=== PATIENT | male | born 1980 | race Caucasian/White ===

== ENCOUNTER 2019-09-14 11:22 | Inpatient (IN) | payer OTHER ==
--- NOTE | 2019-09-14 11:45 | BHS.RME ---
Substance Use & Tx History - Substance Use History Alcohol Substance amount: 2 pints vodka + beers Frequency of use: Daily Substance route: Oral Date of Last Use: 09/13/19 Heroin Substance amount: 5 bags Frequency of use: Daily Substance route: Injection (ex: intravenous or skin popping) Date of Last Use: 09/13/19 COWS - Scale Resting Pulse: 0= [place] 80 or Below Sweatin= Chills/Flushing Restless Observation: 1= Difficult to Sit Still Pupil Size: 1= Pupils >than Normal Bone or Joint Aches: 2= Severe Diffuse Aches Runny Nose/ Eye Tearin= Runny Nose/Eyes GI Upset > 30mins: 1= Stomach Cramp Tremor Observation: 1= Tremor [place], Not Seen Yawning Observation: 1= 1-2x During Session Anxiety or Irritability: 1=Feels Anxious/Irritable Goose Flesh Skin: 0=Smooth Skin COWS Score: 11 CIWA Nausea/Vomitin Muscle Tremors: 3 Anxiety: 3 Agitation: 3 Paroxysmal Sweats: 3 Orientation: 0-Oriented Tacttile Disturbances: 0-None Auditory Disturbances: 0-None Visual Disturbances: 0-None Headache: 0-None Present CIWA-Ar Total Score: 14
--- NOTE | 2019-09-14 12:44 | HP ---
COWS - Scale Resting Pulse: 0= [place] 80 or Below Sweatin= Chills/Flushing Restless Observation: 1= Difficult to Sit Still Pupil Size: 1= Pupils >than Normal Bone or Joint Aches: 2= Severe Diffuse Aches Runny Nose/ Eye Tearin= Runny Nose/Eyes GI Upset > 30mins: 1= Stomach Cramp Tremor Observation: 1= Tremor [place], Not Seen Yawning Observation: 1= 1-2x During Session Anxiety or Irritability: 1=Feels Anxious/Irritable Goose Flesh Skin: 0=Smooth Skin COWS Score: 11 CIWA Score Nausea/Vomitin Muscle Tremors: 3 Anxiety: 3 Agitation: 3 Paroxysmal Sweats: 3 Orientation: 0-Oriented Tacttile Disturbances: 0-None Auditory Disturbances: 0-None Visual Disturbances: 0-None Headache: 0-None Present CIWA-Ar Total Score: 14 - Admission Criteria OASAS Guidelines: Admission for Medically Managed Detox: Requires at least one of the followin. CIWA greater than 12 2. Seizures within the past 24 hours 3. Delirium tremens within the past 24 hours 4. Hallucinations within the past 24 hours 5. Acute intervention needed for co occurring medical disorder 6. Acute intervention needed for co occurring psychiatric disorder 7. Severe withdrawal that cannot be handled at a lower level of care (continued vomiting, continued diarrhea, abnormal vital signs) requiring intravenous medication and/or fluids 8. Admitting History and Physical - Admission Chief Complaint: " I overdosed yesterday. I need help." History of Present Illness: 39 year old male with history of opioid dependence s/p overdose yesterday and seen and [facility]. Also has history of alcohol dependence with withdrawal. Alcohol: 2 pints vodka + 12 beers daily, started drinking at age 12 and last drank on 09/13/19. Admits to blackouts, last one 1 month ago, and endorses the need for an eye night nurse daily. Heroin: 1-2 bags usually but now up to 5 bags daily, started at age 25, last used 09/13/19 Cocaine: just started 1.5 weeks daily $40 daily, started 15 week ago, last used used 09/13/19 Nicotine: 1/2 pack daily, started smoking at the age of 10 PMH: Headache, Migrainous Psurg: None Psych: Bipolar, PTSD ( effexor, zyprexa las taken 2 days ago) He is homeless living on the streets. CIWA 14 COWS 11 UrineTox: BUP, MOP, JONATAN, FEN Patient meets criteria for detox as he has poor recovery environment History Source: Patient Limitations to Obtaining History: No Limitations - Past Surgical History Past Surgical History: Yes: None - Smoking History Smoking history: Current every day smoker Have you smoked in the past 12 months: Yes Aproximately how many cigarettes per day: 6 - Alcohol/Substance Use Hx Alcohol Use: Yes History of Substance Use: reports: Cocaine, Heroin, Marijuana Date of Last Use: 09/13/19 - Social History Usual Living Arrangement: Yes: Alone Do you think of yourself as: Straight/Heterosexual ADL: Independent 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, 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 History of Recent Travel: No Admission [facility] Allergies/Adverse Reactions: Allergies Allergy/AdvReac Type Severity Reaction Status Date / Time No Known Allergies Allergy Verified 09/14/19 12:04 Exam Limitations: No Limitations - Ebola screening Have you traveled outside of the country in the last 21 days: No Have you had contact with anyone from an Ebola affected area: No Have you been sick,other than usual withdrawal symptoms: No Do you have a fever: No - Review of Systems Constitutional: Chills, Diaphoresis EENT: reports: No Symptoms Reported Respiratory: reports: No Symptoms reported Cardiac: reports: No Symptoms Reported GI: reports: No Symptoms Reported : reports: No Symptoms Reported Musculoskeletal: reports: No Symptoms Reported Integumentary: reports: No Symptoms Reported Neuro: reports: No Symptoms reported Endocrine: reports: No Symptoms Reported Hematology: reports: No Symptoms Reported Psychiatric: reports: Judgement Intact, Mood/Affect Appropiate, Orientated x3 Other Systems: Reviewed and Negative Patient History - Patient Medical History Hx Asthma: No Hx Chronic Obstructive Pulmonary Disease (COPD): No Hx Cardiac Disorders: No Hx Hypertension: No Hx Seizures: No Hx Diabetes: No Hx Gastrointestinal Disorders: No Hx Genitourinary Disorders: No Hx Sexually Transmitted Disorders: No Hx Renal Disease (ESRD): No Hx Depression: No Hx Suicide Attempt: No Hx Schizophrenia: No - Patient Surgical History Past Surgical History: No Hx Neurologic Surgery: No Hx Cataract Extraction: No Hx Cardiac Surgery: No Hx Lung Surgery: No Hx Breast Surgery: No Hx Breast Biopsy: No Hx Abdominal Surgery: No Hx Appendectomy: No Hx Cholecystectomy: No Hx Genitourinary Surgery: No Hx Section: No Hx Orthopedic Surgery: No Anesthesia Reaction: No - PPD History Documented Results: Negative w/o proof Implanted On Prior R Admission?: Yes Results: negative PPD to be Administered?: Yes - Smoking Cessation Smoking history: Current every day smoker Aproximately how many cigarettes per day: 6 Hx Chewing Tobacco Use: No Initiated information on smoking cessation: Yes 'Breaking Loose' booklet given: 09/14/19 - Substances abused Alcohol Substance route: Oral Frequency: Daily Amount used: 2 PINTS ALCOHOL, 12 CANS OF BEER Age of first use: 12 Date of last use: 09/13/19 Heroin Substance route: Injection Frequency: Daily Amount used: 1-2 BAGS Age of first use: 25 Date of last use: 09/13/19 Cocaine Substance route: Injection Frequency: Daily Amount used: $40 Age of first use: 19 Date of last use: 09/13/19 Admission Physical Exam BHS - Vital Signs Vital Signs: Vital Signs - 24 hr 09/14/19 12:25 Temperature 98.1 F Pulse Rate 85 Respiratory 20 Rate Blood Pressure 109/75 - Physical General Appearance: Yes: Tremorous, Irritable, Sweating, Anxious HEENTM: Yes: EOMI, Hearing grossly Normal, Normal ENT Inspection, Normocephalic, Normal Voice, MOR, Pharynx Normal, Tm's normal Respiratory: Yes: Chest Non-Tender, Lungs Clear, Normal Breath Sounds, No Respiratory Distress, No Accessory Muscle Use Neck: Yes: No masses,lesions,Nodules, Supple, Trachea in good position Breast: Yes: Within Normal Limits Cardiology: Yes: Regular Rhythm, Regular Rate, S1, S2 Abdominal: Yes: Normal Bowel Sounds, Non Tender, Soft, Protuberent Genitourinary: Yes: Within Normal Limits Back: Yes: Normal Inspection Musculoskeletal: Yes: full range of Motion, Gait Steady, Pelvis Stable Extremities: Yes: Normal Capillary Refill, Normal Inspection, Normal Range of Motion, Non-Tender Neurological: Yes: ecd II-XII NML intact, Fully Oriented, Alert, Motor Strength 5/5, Normal Mood/Affect, Normal Response Integumentary: Yes: Normal Color, Warm Lymphatic: Yes: Within Normal Limits - Diagnostic (1) Opioid dependence with withdrawal Current Visit: Yes Status: Acute (2) Alcohol dependence with withdrawal Current Visit: Yes Status: Acute (3) Nicotine dependence Current Visit: Yes Status: Acute (4) Generalized headaches Current Visit: Yes Status: Acute (5) Bipolar 1 disorder Current Visit: Yes Status: Acute (6) PTSD (post-traumatic stress disorder) Current Visit: Yes Status: Acute (7) Homeless Current Visit: Yes Status: Acute Cleared for Admission S - Detox or Rehab [facility] Level of Care: Medically Managed Detox Regimen/Protocol: Methadone/Librium Claeared for Rehab Admission: No Screened but not Admitted - Documentation of Visit Screened but not Admitted: No Urine Drug Screen - Test Device Lot number: [id number] Expiration date: 10/25/20 - Control Is test valid?: Yes - Results Drug screen NEGATIVE: No Urine drug screen results: JONATAN-Cocaine, FEN-Fentanyl, MOP-Opiates, BUP-Suboxone Inpatient Rehab Admission - Rehab Decision to Admit Inpatient rehab admission?: No
[2019-09-14] MEDS ORDERED: cloNIDine HCL 0.1 MG TABLET PO PRN (12:49)
[2019-09-14] MEDS ORDERED: MAG HYDROX/AL HYDROX/SIMETH 30 ML UNIT-DOSE CUP PO PRN (12:49)
[2019-09-14] MEDS ORDERED: chlordiazePOXIDE HCL 25 MG CAPSULE PO PRN (12:49)
[2019-09-14] MEDS ORDERED: ACETAMINOPHEN 325 MG TABLET (FP) PO PRN ×2 (12:49)
[2019-09-14] MEDS ORDERED: BISMUTH SUBSALICYLATE 524 MG/30 ML UD PO PRN (12:49)
[2019-09-14] MEDS ORDERED: MAGNESIUM HYDROX 2400MG/30ML ORAL SUSPENSION 30 ML CUP PO PRN (12:49)
[2019-09-14] MEDS ORDERED: METHOCARBAMOL 500 MG TABLET PO PRN (12:49)
[2019-09-14] MEDS ORDERED: NICOTINE POLACRILEX 2 MG GUM BUC PRN (12:49)
[2019-09-14] MEDS ORDERED: MAGNESIUM CITRATE 300 ML BOTTLE PO PRN (12:49)
[2019-09-14] MEDS ORDERED: MENTHOL/PHENOL 1 EACH UD MM PRN (12:49)
[2019-09-14] MEDS ORDERED: IBUPROFEN 400 MG TABLET (FP) PO PRN (12:49)
[2019-09-14 13:02] VITALS: BMI 32.6
--- NOTE | 2019-09-14 13:23 | EKG ---
Test Reason : Blood Pressure : / mmHG Vent. Rate : 059 BPM Atrial Rate : 059 BPM P-R Int : 164 ms QRS Dur : 090 ms QT Int : 420 ms P-R-T Axes : 059 018 041 degrees QTc Int : 415 ms SINUS BRADYCARDIA OTHERWISE NORMAL ECG NO PREVIOUS ECGS AVAILABLE Confirmed by Karyna Menendez ([id number]) on 09/14/2019 1:23:20 PM Referred By: Confirmed By:Karyna Menendez
[2019-09-14] MEDS ORDERED: METHADONE HCL 10 MG TABLET (FOR DETOX USE ONLY) PO ONE (13:30)
[2019-09-14] MEDS ORDERED: ONDANSETRON *ODT* 4 MG TABLET SL ONE (13:30)
[2019-09-14] MEDS: hydrOXYzine PAMOATE 25 MG CAPSULE (FP) PO SCH ×3 (14:14→22:24)
[2019-09-14] MEDS: chlordiazePOXIDE HCL 25 MG CAPSULE PO SCH ×3 (14:14→22:21)
[2019-09-14] MEDS: NICOTINE 7 MG/24 HOURS TOPICAL PATCH TD SCH (14:14)
[2019-09-14] MEDS: PRENATAL VITAMINS W/ FOLIC ACID TABLET (FP) PO SCH (14:15)
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
[2019-09-14 17:42] LABS: ALBUMIN 3.7 g/dl (3.4-5.0); BILIRUBIN,TOTAL 0.9 mg/dL (0.2-1); BLOOD UREA NITROGEN 11.8 mg/dL (7-18); TOT PROT 6.9 g/dl (6.4-8.2)
[2019-09-14 17:47] LABS: HEMATOCRIT 37.7 % (35.4-49); HEMOGLOBIN 12.6 GM/dL (11.7-16.9); MCH 31.1 pg (25.7-33.7); MCHC 33.6 g/dl (32.0-35.9); MEAN CELL VOLUME 92.6 fl (80-96); MEAN PLT VOLUME 7.7 fl (7.5-11.1); PLATELET COUNT 277 K/MM3 (134-434); RBC 4.06 M/mm3 (4.00-5.60); RDW 14.1 % (11.9-15.9); WHITE BLOOD COUNT 4.2 K/mm3 (4.0-10.0)
[2019-09-14] MEDS ORDERED: MELATONIN 5 MG TABLETS PO SCH (22:00)
[2019-09-14] MEDS: BACITRACIN 0.9 GM PACKET TP SCH (22:20)
[2019-09-14] MEDS: THIAMINE HCL 100 MG TABLET (FP) PO SCH (22:21)
[2019-09-14] MEDS: OLANZapine 10 MG TABLET PO SCH (22:21)
[2019-09-14] MEDS: GABAPENTIN 300 MG CAPSULE PO SCH (22:21)
[2019-09-15] MEDS: chlordiazePOXIDE HCL 25 MG CAPSULE PO SCH ×4 (05:31→23:54)
[2019-09-15] MEDS: GABAPENTIN 300 MG CAPSULE PO SCH ×3 (05:31→23:52)
[2019-09-15] MEDS: hydrOXYzine PAMOATE 25 MG CAPSULE (FP) PO SCH (05:31)
[2019-09-15] MEDS ORDERED: METHADONE HCL 10 MG TABLET (FOR DETOX USE ONLY) ONE (08:50)
[2019-09-15] MEDS ORDERED: METHADONE HCL 5 MG TABLET (FOR DETOX USE ONLY) ONE (08:50)
[2019-09-15] MEDS ORDERED: METHADONE (DETOX) 20 MG, METHADONE (DETOX) 5 MG PO ONE (10:00)
[2019-09-15] MEDS: BACITRACIN 0.9 GM PACKET TP SCH ×2 (10:15→23:52)
[2019-09-15] MEDS: VENLAFAXINE HCL 150 MG E.R. CAPSULE PO SCH (10:15)
[2019-09-15] MEDS: NICOTINE 7 MG/24 HOURS TOPICAL PATCH TD SCH (10:16)
[2019-09-15] MEDS: PRENATAL VITAMINS W/ FOLIC ACID TABLET (FP) PO SCH (10:16)
--- NOTE | 2019-09-15 12:07 | PN ---
S CIWA - CIWA Score Nausea/Vomitin Muscle Tremors: 2 Anxiety: 3 Agitation: 3 Paroxysmal Sweats: No Perspiration Orientation: 0-Oriented Tacttile Disturbances: 1-Very Mild Itch/Numbness Auditory Disturbances: 0-None Visual Disturbances: 0-None Headache: 1-Very Mild CIWA-Ar Total Score: 12 BHS COWS - Scale Resting Pulse: 0= [place] 80 or Below Sweatin= No chills or Flushing Restless Observation: 1= Difficult to Sit Still Pupil Size: 1= Pupils >than Normal Bone or Joint Aches: 2= Severe Diffuse Aches Runny Nose/ Eye Tearin= Nasal Congestion GI Upset > 30mins: 2= Nausea/Diarrhea Tremor Observation of Outstretched Hands: 2= Slight Tremor Visible Yawning Observation: 1= 1-2x During Session Anxiety or Irritability: 2=Irritable/Anxious Goose Flesh Skin: 0=Smooth Skin COWS Score: 12 S Progress Note (SOAP) Subjective: alert,irritable,anxious,interrupted,tremor,pain in the body and back,nausea Objective: 09/15/19 12:07 Vital Signs Temperature 97.7 F 09/15/19 09:01 Pulse Rate 71 09/15/19 09:01 Respiratory Rate 18 09/15/19 09:01 Blood Pressure 115/71 09/15/19 09:01 O2 Sat by Pulse Oximetry (%) 95 09/15/19 09:01 09/15/19 12:08 Laboratory Last Values WBC 4.2 K/mm3 (4.0-10.0) 09/14/19 12:10 RBC 4.06 M/mm3 (4.00-5.60) 09/14/19 12:10 Hgb 12.6 GM/dL (11.7-16.9) 09/14/19 12:10 Hct 37.7 % (35.4-49) 09/14/19 12:10 MCV 92.6 fl (80-96) 09/14/19 12:10 MCH 31.1 pg (25.7-33.7) 09/14/19 12:10 MCHC 33.6 g/dl (32.0-35.9) 09/14/19 12:10 RDW 14.1 % (11.9-15.9) 09/14/19 12:10 Plt Count 277 K/MM3 (134-434) 09/14/19 12:10 MPV 7.7 fl (7.5-11.1) 09/14/19 12:10 Sodium 136 mmol/L (136-145) 09/14/19 12:10 Potassium 4.0 mmol/L (3.5-5.1) 09/14/19 12:10 Chloride 102 mmol/L (98-107) 09/14/19 12:10 Carbon Dioxide 27 mmol/L (21-32) 09/14/19 12:10 Anion Gap 8 MMOL/L (8-16) 09/14/19 12:10 BUN 11.8 mg/dL (7-18) 09/14/19 12:10 Creatinine 1.0 mg/dL (0.55-1.3) 09/14/19 12:10 Est GFR (CKD-EPI)AfAm 107.87 09/14/19 12:10 Est GFR (CKD-EPI)NonAf 93.07 09/14/19 12:10 Random Glucose 108 mg/dL (74-106) H 09/14/19 12:10 Calcium 9.0 mg/dL (8.5-10.1) 09/14/19 12:10 Total Bilirubin 0.9 mg/dL (0.2-1) 09/14/19 12:10 AST 87 U/L (15-37) H 09/14/19 12:10 ALT 153 U/L (13-61) H 09/14/19 12:10 Alkaline Phosphatase 105 U/L (45-117) 09/14/19 12:10 Total Protein 6.9 g/dl (6.4-8.2) 09/14/19 12:10 Albumin 3.7 g/dl (3.4-5.0) 09/14/19 12:10 Syphilis Serology Non-reactive (NONREACTIVE) 09/14/19 12:10 Assessment: 09/15/19 12:08 withdrawal symptom Plan: continue detox methadone and librium regimen,fasting glucose in am
[2019-09-15] MEDS: OLANZapine 10 MG TABLET PO SCH (23:52)
[2019-09-15] MEDS: THIAMINE HCL 100 MG TABLET (FP) PO SCH (23:52)
[2019-09-16] MEDS: GABAPENTIN 300 MG CAPSULE PO SCH ×3 (06:16→23:15)
[2019-09-16] MEDS: chlordiazePOXIDE HCL 25 MG CAPSULE PO SCH ×4 (06:16→23:15)
[2019-09-16] MEDS ORDERED: METHADONE HCL 10 MG TABLET (FOR DETOX USE ONLY) PO ONE (10:00)
[2019-09-16 10:07] LABS: GLUCOSE,FASTING 102 mg/dL (74-106); SGOT/AST 63 U/L (15-37); SGPT/ALT 141 U/L (13-61)
[2019-09-16] MEDS: VENLAFAXINE HCL 150 MG E.R. CAPSULE PO SCH (11:00)
[2019-09-16] MEDS: PRENATAL VITAMINS W/ FOLIC ACID TABLET (FP) PO SCH (11:00)
[2019-09-16] MEDS: NICOTINE 7 MG/24 HOURS TOPICAL PATCH TD SCH (11:00)
[2019-09-16] MEDS: BACITRACIN 0.9 GM PACKET TP SCH ×2 (11:04→23:15)
--- NOTE | 2019-09-16 12:22 | PN ---
[facility] CIWA - CIWA Score Nausea/Vomitin-Mild Nausea/No Vomiting Muscle Tremors: 2 Anxiety: 2 Agitation: 2 Paroxysmal Sweats: No Perspiration Orientation: 0-Oriented Tacttile Disturbances: 1-Very Mild Itch/Numbness Auditory Disturbances: 0-None Visual Disturbances: 0-None Headache: 1-Very Mild CIWA-Ar Total Score: 9 BHS COWS - Scale Resting Pulse: 0= [place] 80 or Below Sweatin= No chills or Flushing Restless Observation: 1= Difficult to Sit Still Pupil Size: 0= Normal to Room Light Bone or Joint Aches: 1= Mild Discomfort Runny Nose/ Eye Tearin= Nasal Congestion GI Upset > 30mins: 1= Stomach Cramp Tremor Observation of Outstretched Hands: 2= Slight Tremor Visible Yawning Observation: 1= 1-2x During Session Anxiety or Irritability: 2=Irritable/Anxious Goose Flesh Skin: 0=Smooth Skin COWS Score: 9 [facility] Progress Note (SOAP) Subjective: alert,irritable,anxious,interrupted sleep,pain in the body and back Objective: 09/16/19 12:25 Vital Signs Temperature 97.1 F L 09/16/19 05:58 Pulse Rate 70 09/16/19 05:58 Respiratory Rate 16 09/16/19 05:58 Blood Pressure 115/83 09/16/19 05:58 O2 Sat by Pulse Oximetry (%) 95 09/16/19 05:58 Laboratory Results - last 24 hr 09/14/19 09/16/19 13:40 07:45 Fasting Glucose 102 AST 63 H ALT 141 H COVID-19 (KWAN) Not detected Assessment: 09/16/19 12:26 withdrawal symptom Plan: continue detox methadone and librium regimen
[2019-09-16] MEDS: OLANZapine 10 MG TABLET PO SCH (22:34)
[2019-09-16] MEDS: THIAMINE HCL 100 MG TABLET (FP) PO SCH (23:15)
[2019-09-17] MEDS ORDERED: chlordiazePOXIDE HCL 10 MG CAPSULE PO PRN
[2019-09-17] MEDS: chlordiazePOXIDE HCL 10 MG CAPSULE PO SCH ×4 (06:31→23:11)
[2019-09-17] MEDS: GABAPENTIN 300 MG CAPSULE PO SCH ×3 (06:31→21:50)
[2019-09-17] MEDS ORDERED: METHADONE HCL 5 MG TABLET (FOR DETOX USE ONLY) ONE (09:48)
[2019-09-17] MEDS ORDERED: METHADONE HCL 10 MG TABLET (FOR DETOX USE ONLY) ONE (09:49)
[2019-09-17] MEDS ORDERED: METHADONE (DETOX) 10 MG, METHADONE (DETOX) 5 MG PO ONE (10:00)
--- NOTE | 2019-09-17 10:04 | PN ---
S CIWA - CIWA Score Nausea/Vomitin-Mild Nausea/No Vomiting Muscle Tremors: 2 Anxiety: 2 Agitation: 1-Slight > Activity Paroxysmal Sweats: No Perspiration Orientation: 0-Oriented Tacttile Disturbances: 1-Very Mild Itch/Numbness Auditory Disturbances: 0-None Visual Disturbances: 0-None Headache: 1-Very Mild CIWA-Ar Total Score: 8 BHS COWS - Scale Resting Pulse: 0= [place] 80 or Below Sweatin= No chills or Flushing Restless Observation: 0= Sits Still Pupil Size: 0= Normal to Room Light Bone or Joint Aches: 1= Mild Discomfort Runny Nose/ Eye Tearin= Nasal Congestion GI Upset > 30mins: 1= Stomach Cramp Tremor Observation of Outstretched Hands: 2= Slight Tremor Visible Yawning Observation: 1= 1-2x During Session Anxiety or Irritability: 2=Irritable/Anxious Goose Flesh Skin: 0=Smooth Skin COWS Score: 8 S Progress Note (SOAP) Subjective: alert,irritable,anxious,interrupted sleep,pain in the body Objective: 09/17/19 10:03 Vital Signs Temperature 97.5 F L 09/17/19 05:23 Pulse Rate 63 09/17/19 05:23 Respiratory Rate 16 09/17/19 05:23 Blood Pressure 117/73 09/17/19 05:23 O2 Sat by Pulse Oximetry (%) 95 09/17/19 05:23 Laboratory Results - last 24 hr 09/16/19 07:45 Fasting Glucose 102 AST 63 H ALT 141 H Assessment: 09/17/19 10:03 withdrawal symptom Plan: continue detox methadone and librium regimen
[2019-09-17] MEDS: VENLAFAXINE HCL 150 MG E.R. CAPSULE PO SCH (10:24)
[2019-09-17] MEDS: BACITRACIN 0.9 GM PACKET TP SCH ×2 (10:25→21:51)
[2019-09-17] MEDS: NICOTINE 7 MG/24 HOURS TOPICAL PATCH TD SCH (10:25)
[2019-09-17] MEDS: PRENATAL VITAMINS W/ FOLIC ACID TABLET (FP) PO SCH (10:25)
[2019-09-17] MEDS: hydrOXYzine PAMOATE 25 MG CAPSULE (FP) PO PRN (14:26)
[2019-09-17] MEDS: THIAMINE HCL 100 MG TABLET (FP) PO SCH (21:50)
[2019-09-17] MEDS: OLANZapine 10 MG TABLET PO SCH (21:50)
[2019-09-17] MEDS: MELATONIN 5 MG TABLETS PO PRN (21:51)
[2019-09-18] MEDS: chlordiazePOXIDE HCL 10 MG CAPSULE PO SCH ×2 (05:43→16:57)
[2019-09-18] MEDS: GABAPENTIN 300 MG CAPSULE PO SCH ×4 (05:44→22:14)
[2019-09-18] MEDS ORDERED: METHADONE HCL 10 MG TABLET (FOR DETOX USE ONLY) PO ONE (10:00)
[2019-09-18] MEDS: BACITRACIN 0.9 GM PACKET TP SCH ×2 (10:12→22:14)
[2019-09-18] MEDS: VENLAFAXINE HCL 150 MG E.R. CAPSULE PO SCH (10:12)
[2019-09-18] MEDS: PRENATAL VITAMINS W/ FOLIC ACID TABLET (FP) PO SCH (10:12)
[2019-09-18] MEDS: NICOTINE 7 MG/24 HOURS TOPICAL PATCH TD SCH (10:12)
--- NOTE | 2019-09-18 10:26 | PN ---
[facility] CIWA - CIWA Score Nausea/Vomitin-No Nausea/No Vomiting Muscle Tremors: 1-None Visible, but [place] Anxiety: 1-Mildly Anxious Agitation: 1-Slight > Activity Paroxysmal Sweats: No Perspiration Orientation: 0-Oriented Tacttile Disturbances: 0-None Auditory Disturbances: 0-None Visual Disturbances: 0-None Headache: 1-Very Mild CIWA-Ar Total Score: 4 S COWS - Scale Resting Pulse: 0= [place] 80 or Below Sweatin= No chills or Flushing Restless Observation: 0= Sits Still Pupil Size: 0= Normal to Room Light Bone or Joint Aches: 1= Mild Discomfort Runny Nose/ Eye Tearin= Nasal Congestion GI Upset > 30mins: 1= Stomach Cramp Tremor Observation of Outstretched Hands: 1= Tremor [place], Not Seen Yawning Observation: 1= 1-2x During Session Anxiety or Irritability: 2=Irritable/Anxious Goose Flesh Skin: 0=Smooth Skin COWS Score: 7 [facility] Progress Note (SOAP) Subjective: alert,irritable,anxious,interrupted sleep,aching pain in the body Objective: 09/18/19 10:25 Vital Signs Temperature 97.5 F L 09/18/19 05:02 Pulse Rate 67 09/18/19 05:02 Respiratory Rate 20 09/18/19 05:02 Blood Pressure 138/70 09/18/19 05:02 O2 Sat by Pulse Oximetry (%) 99 09/18/19 05:02 Assessment: 09/18/19 10:25 withdrawal symptom Plan: continue detox methadone and librium regimen,discharge in am
[2019-09-18] MEDS: hydrOXYzine PAMOATE 25 MG CAPSULE (FP) PO PRN ×2 (16:57→22:15)
[2019-09-18] MEDS: OLANZapine 10 MG TABLET PO SCH (22:14)
[2019-09-18] MEDS: THIAMINE HCL 100 MG TABLET (FP) PO SCH (22:14)
[2019-09-18] MEDS: MELATONIN 5 MG TABLETS PO PRN (22:15)
[2019-09-19] MEDS ORDERED: chlordiazePOXIDE HCL 10 MG CAPSULE PO ONE (05:00)
[2019-09-19] MEDS: GABAPENTIN 300 MG CAPSULE PO SCH ×2 (05:55→15:16)
[2019-09-19] MEDS ORDERED: METHADONE HCL 5 MG TABLET (FOR DETOX USE ONLY) PO ONE (06:00)
[2019-09-19] MEDS: PRENATAL VITAMINS W/ FOLIC ACID TABLET (FP) PO SCH (10:03)
[2019-09-19] MEDS: BACITRACIN 0.9 GM PACKET TP SCH (10:03)
[2019-09-19] MEDS: NICOTINE 7 MG/24 HOURS TOPICAL PATCH TD SCH (10:03)
[2019-09-19] MEDS: VENLAFAXINE HCL 150 MG E.R. CAPSULE PO SCH (10:03)
--- NOTE | 2019-09-19 11:43 | DS ---
[facility] Detox Discharge Summary Admission Date: 09/14/19 Discharge Date: 09/19/19 - History Present History: Alcohol Dependence, Cocaine Dependence, Opioid Dependence Additional Comments: Alert and oriented x3, in no acute respiratory distress. Full ROM, ambulatory without assistance. Skin warm to touch Completed detox protocol, stable for discharge today. Does not need prescriptions for any medications. Pertinent Past History: History of Migraine headaches, Bipolar, PTSD, Alcohol, Heroin, Cocaine and Cocaine use disorder. - Physical Exam Results Vital Signs: Vital Signs Temperature 97.8 F 09/19/19 09:05 Pulse Rate 84 09/19/19 09:05 Respiratory Rate 17 09/19/19 09:05 Blood Pressure 120/76 09/19/19 09:05 O2 Sat by Pulse Oximetry (%) 95 09/19/19 09:05 Vital Signs 09/19/19 09/19/19 04:59 09:05 Temperature 97.3 F L 97.8 F Pulse Rate 77 84 Respiratory 20 17 Rate Blood Pressure 130/73 120/76 O2 Sat by Pulse 95 95 Oximetry (%) Laboratory Last Values WBC 4.2 K/mm3 (4.0-10.0) 09/14/19 12:10 RBC 4.06 M/mm3 (4.00-5.60) 09/14/19 12:10 Hgb 12.6 GM/dL (11.7-16.9) 09/14/19 12:10 Hct 37.7 % (35.4-49) 09/14/19 12:10 MCV 92.6 fl (80-96) 09/14/19 12:10 MCH 31.1 pg (25.7-33.7) 09/14/19 12:10 MCHC 33.6 g/dl (32.0-35.9) 09/14/19 12:10 RDW 14.1 % (11.9-15.9) 09/14/19 12:10 Plt Count 277 K/MM3 (134-434) 09/14/19 12:10 MPV 7.7 fl (7.5-11.1) 09/14/19 12:10 Sodium 136 mmol/L (136-145) 09/14/19 12:10 Potassium 4.0 mmol/L (3.5-5.1) 09/14/19 12:10 Chloride 102 mmol/L (98-107) 09/14/19 12:10 Carbon Dioxide 27 mmol/L (21-32) 09/14/19 12:10 Anion Gap 8 MMOL/L (8-16) 09/14/19 12:10 BUN 11.8 mg/dL (7-18) 09/14/19 12:10 Creatinine 1.0 mg/dL (0.55-1.3) 09/14/19 12:10 Est GFR (CKD-EPI)AfAm 107.87 09/14/19 12:10 Est GFR (CKD-EPI)NonAf 93.07 09/14/19 12:10 Random Glucose 108 mg/dL (74-106) H 09/14/19 12:10 Fasting Glucose 102 mg/dL (74-106) 09/16/19 07:45 Calcium 9.0 mg/dL (8.5-10.1) 09/14/19 12:10 Total Bilirubin 0.9 mg/dL (0.2-1) 09/14/19 12:10 AST 63 U/L (15-37) H 09/16/19 07:45 ALT 141 U/L (13-61) H 09/16/19 07:45 Alkaline Phosphatase 105 U/L (45-117) 09/14/19 12:10 Total Protein 6.9 g/dl (6.4-8.2) 09/14/19 12:10 Albumin 3.7 g/dl (3.4-5.0) 09/14/19 12:10 Syphilis Serology Non-reactive (NONREACTIVE) 09/14/19 12:10 COVID-19 (KWAN) Not detected (Not Detected) 09/14/19 13:40 Labs noted. Pertinent Admission Physical Exam Findings: Withdrawal symptoms. - Treatment Hospital Course: Detox Protocol Followed, Detoxed Safely, Responded well, Discharged Condition Good - Medication Discharge Medications: Ambulatory Orders Buprenorphine/Naloxone [Suboxone 8Mg/2Mg Sl Film -] 1 each SL BID 09/14/19 Gabapentin [Neurontin] 600 mg PO TID 09/14/19 Olanzapine 10 mg PO HS 09/14/19 Venlafaxine HCl ER [Effexor Xr -] 150 mg PO HS 09/14/19 - Diagnosis (1) Alcohol dependence with withdrawal Current Visit: Yes Status: Acute (2) Cocaine dependence Current Visit: Yes Status: Chronic (3) Opioid dependence with withdrawal Current Visit: Yes Status: Acute (4) Generalized headaches Current Visit: Yes Status: Chronic (5) Nicotine dependence Current Visit: Yes Status: Chronic - AMA Did Patient Leave Against Medical Advice: No
[2019-09-19 17:53] VITALS: BP 118/82; PULSE 106; TEMP 97.7
== END 2019-09-19 07:15 | disposition other institution (70) | DRG 773 ==
LOC: YASAS 11:22 → Y6N 12:20
PROVIDERS: ADMIT Allergy & Immunology; ATTEND Allergy & Immunology
PROC: HZ2ZZZZ Detoxification Services for Substance Abuse Treatment (ICD-10-PCS; principal; 2019-09-14)
DX: F11.23 Opioid dependence with withdrawal (principal); F10.230 Alcohol dependence with withdrawal, uncomplicated; F14.20 Cocaine dependence, uncomplicated; F17.210 Nicotine dependence, cigarettes, uncomplicated; F31.9 Bipolar disorder, unspecified; F19.282 Other psychoactive substance dependence with psychoactive substance-induced sleep disorder; F43.10 Post-traumatic stress disorder, unspecified; G43.909 Migraine, unspecified, not intractable, without status migrainosus; Z62.810 Personal history of physical and sexual abuse in childhood; Z56.0 Unemployment, unspecified; Z59.0 Homelessness
CPT/HCPCS: 36415; 80053; 82947; 84450; 84460; 85027; 86780; 93005; 93010; U0003

== ENCOUNTER 2019-09-19 19:20 | Inpatient (IN) | payer OTHER ==
[2019-09-19] MEDS ORDERED: P-EPHED 60MG/TRIPROLIDI 2.5MG TABLET PO PRN (19:31)
[2019-09-19] MEDS ORDERED: MAGNESIUM CITRATE 300 ML BOTTLE PO PRN (19:31)
[2019-09-19] MEDS ORDERED: NICOTINE POLACRILEX 2 MG GUM BUC PRN (19:31)
[2019-09-19] MEDS ORDERED: IBUPROFEN 400 MG TABLET (FP) PO PRN (19:31)
[2019-09-19] MEDS ORDERED: LOPERAMIDE HCL 2 MG CAPSULE PO PRN (19:31)
[2019-09-19] MEDS ORDERED: guaiFENesin 200 MG/10 ML 10 ML UNIT-DOSE CUPS PO PRN (19:31)
[2019-09-19] MEDS ORDERED: ACETAMINOPHEN 325 MG TABLET (FP) PO PRN (19:31)
[2019-09-19] MEDS ORDERED: MENTHOL/PHENOL 1 EACH UD MM PRN (19:31)
[2019-09-19] MEDS ORDERED: MAGNESIUM HYDROX 2400MG/30ML ORAL SUSPENSION 30 ML CUP PO PRN (19:31)
[2019-09-19] MEDS ORDERED: MAG HYDROX/AL HYDROX/SIMETH 30 ML UNIT-DOSE CUP PO PRN (19:31)
[2019-09-19] MEDS: THIAMINE HCL 100 MG TABLET (FP) PO SCH (21:35)
[2019-09-19] MEDS: MELATONIN 5 MG TABLETS PO SCH (21:35)
[2019-09-19] MEDS: hydrOXYzine PAMOATE 25 MG CAPSULE (FP) PO SCH (21:35)
[2019-09-19] MEDS ORDERED: GABAPENTIN 300 MG CAPSULE PO ONE (22:00)
[2019-09-20] MEDS: hydrOXYzine PAMOATE 25 MG CAPSULE (FP) PO SCH ×5 (06:18→21:16)
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
[2019-09-20] MEDS: VENLAFAXINE HCL 75 MG E.R. CAPSULES PO SCH (10:17)
[2019-09-20] MEDS: PRENATAL VITAMINS W/ FOLIC ACID TABLET (FP) PO SCH (10:17)
[2019-09-20] MEDS: NICOTINE 7 MG/24 HOURS TOPICAL PATCH TD SCH (10:17)
[2019-09-20] MEDS: GABAPENTIN 300 MG CAPSULE PO SCH ×2 (14:25→21:17)
[2019-09-20] MEDS: MELATONIN 5 MG TABLETS PO SCH (21:16)
[2019-09-20] MEDS: THIAMINE HCL 100 MG TABLET (FP) PO SCH (21:16)
[2019-09-20] MEDS: OLANZapine 10 MG TABLET PO SCH (21:16)
[2019-09-21] MEDS: GABAPENTIN 300 MG CAPSULE PO SCH ×3 (06:37→21:26)
[2019-09-21] MEDS: hydrOXYzine PAMOATE 25 MG CAPSULE (FP) PO SCH ×5 (06:37→21:25)
--- NOTE | 2019-09-21 11:28 | PN ---
[facility] Progress Note Note: PATIENT SEEN FOR EVALUATION FOR SUBOXONE MAT. PATIENT COMPLETED DETOX 09/19/2019 FOR OPIOD DEPENDENCE. HE IS UNABLE TO INFORM PROVIDER OF LAST DOSE OF SUBOXONE. STATES HE WOULD LIKE TO GO TO [facility] BUT IS NOT CONNECTED AT THIS TIME. PATIENT STATES HAVING MILD CRAVINGS, CHILLS AND RESTLESSNESS. Others' Prescriptions Patient Name: Isai JonesBirth Date: 1980 Address: [address] [place] [address] [address] [place], [place] [address]Kuw: Male Rx Written Rx Dispensed Drug Quantity Days Supply Prescriber Name Payment Method Dispenser 09/04/2019 09/04/2019 buprenorphine-naloxone 8-2 mg sl tablet 30 30 Maryellen Kan [facility] [place], [place] Patient Name: Isai JonesBirth Date: 1980 Address: [address] [place], [place] [address], [place] [address]Opc: Male Rx Written Rx Dispensed Drug Quantity Days Supply Prescriber Name Payment Method Dispenser 08/18/2019 08/18/2019 buprenorphine-naloxone 8-2 mg sl film 50 25 C Tamika bauer ([employer]) Insurance [facility] ALERT AND ORIENTED X 3 SKIN WARM AND DRY, FLUSHED PUPILS MILDLY DILATED, 3MM EOMS INTACT BL CAR S1S2 RESP CTA BL EXT FULL ROM, AMB AD ROBERT A/P OPIOD DEPENDENCE HX OF SUBOXONE MAT UPON REVIEW OF ADMISSION, PATIENT URINE DRUG SCREEN + BUP/FEN/OPI PENDING CONNECTION TO LONG-TERM PROGRAM AND POST 2 DAY DETOX D/C REFERRED TO COUNSELOR FOR CONNECTION TO PROGRAM REPEAT URINE TOX 09/23/2019 PRIOR TO RESTARTING SUBOXONE
[2019-09-21] MEDS: PRENATAL VITAMINS W/ FOLIC ACID TABLET (FP) PO SCH (11:41)
[2019-09-21] MEDS ORDERED: PT OWN MED DRAWER 7, Y5N ONE (11:47)
[2019-09-21] MEDS: VENLAFAXINE HCL 75 MG E.R. CAPSULES PO SCH (11:47)
[2019-09-21] MEDS: NICOTINE 7 MG/24 HOURS TOPICAL PATCH TD SCH (11:48)
[2019-09-21] MEDS: MELATONIN 5 MG TABLETS PO SCH (21:26)
[2019-09-21] MEDS: OLANZapine 10 MG TABLET PO SCH (21:26)
[2019-09-21] MEDS: THIAMINE HCL 100 MG TABLET (FP) PO SCH (21:26)
[2019-09-22] MEDS: GABAPENTIN 300 MG CAPSULE PO SCH ×3 (06:55→21:07)
[2019-09-22] MEDS: hydrOXYzine PAMOATE 25 MG CAPSULE (FP) PO SCH ×2 (06:55→10:04)
[2019-09-22] MEDS ORDERED: PT OWN MED DRAWER 7, Y5N ONE (09:02)
[2019-09-22] MEDS: VENLAFAXINE HCL 75 MG E.R. CAPSULES PO SCH (10:03)
[2019-09-22] MEDS: PRENATAL VITAMINS W/ FOLIC ACID TABLET (FP) PO SCH (10:03)
[2019-09-22] MEDS: NICOTINE 7 MG/24 HOURS TOPICAL PATCH TD SCH (10:04)
[2019-09-22] MEDS ORDERED: hydrOXYzine PAMOATE 25 MG CAPSULE (FP) PO PRN (10:09)
--- NOTE | 2019-09-22 15:37 | PN ---
[facility] COWS - Scale Resting Pulse: 0= CA 80 or Below Sweatin=Flushed/Facial Moisture Restless Observation: 0= Sits Still Pupil Size: 0= Normal to Room Light Bone or Joint Aches: 1= Mild Discomfort Runny Nose/ Eye Tearin= Nasal Congestion GI Upset > 30mins: 1= Stomach Cramp Tremor Observation of Outstretched Hands: 2= Slight Tremor Visible Yawning Observation: 1= 1-2x During Session Anxiety or Irritability: 1=Feels Anxious/Irritable Goose Flesh Skin: 0=Smooth Skin COWS Score: 9 [facility] Progress Note (SOAP) Subjective: Patient wants to re-start suboxone. Was on 8mg BID prior to admission; 4mg QD 39 year old male with history of opioid dependence s/p overdose prior to admission and seen and [facility]. Also has history of alcohol dependence with withdrawal. Alcohol: 2 pints vodka + 12 beers daily, started drinking at age 12 and last drank on 09/13/19. 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 Heroin: 1-2 bags usually but now up to 5 bags daily, started at age 25, last used 09/13/19 Cocaine: just started 1.5 weeks daily $40 daily, started 15 week ago, last used used 09/13/19 Nicotine: 1/2 pack daily, started smoking at the age of 10 PMH: Headache, Migrainous Psurg: None Psych: Bipolar, PTSD ( effexor, zyprexa las taken 2 days ago) He is homeless living on the streets. COWS 11upon admission, now at 9 Objective: General Appearance: Y Irritable, Sweating, Anxious HEENTM: EOMI,Normocephalic, Respiratory: No Respiratory Distress, No Accessory Muscle Use Neck: Supple, Abdominal: +Bowel Sounds, Protuberent Musculoskeletal: full range of Motion, Gait Steady, r Neurological: Yes: discharge coordinator II-XII NML intact, 09/22/19 15:39 Assessment: Opioid Use Disorder 09/22/19 15:40 Plan: Will start Suboxone at 8 mg/day
[2019-09-22] MEDS ORDERED: BUPRENORPHINE/NALOXONE 8 MG/2 MG FILM PACKET SL SCH (16:00)
[2019-09-22] MEDS: OLANZapine 10 MG TABLET PO SCH (21:07)
[2019-09-22] MEDS: THIAMINE HCL 100 MG TABLET (FP) PO SCH (21:07)
[2019-09-22] MEDS: MELATONIN 5 MG TABLETS PO SCH (21:07)
[2019-09-23] MEDS: GABAPENTIN 300 MG CAPSULE PO SCH (05:55)
[2019-09-23 07:12] VITALS: BP 118/81; PULSE 82; TEMP 97.7
--- NOTE | 2019-09-23 09:27 | DS ---
[facility] Rehab Discharge Summary - [facility] Rehab Discharge Summary Admission Date: 09/19/19 Discharge Date: 09/23/19 - Discharge Physical Exam Vital Signs: Vital Signs Temperature 97.7 F 09/23/19 07:11 Pulse Rate 82 09/23/19 07:11 Respiratory Rate 18 09/23/19 07:11 Blood Pressure 118/81 09/23/19 07:11 O2 Sat by Pulse Oximetry (%) 97 09/23/19 07:11 - Medication Discharge Medications: Ambulatory Orders Buprenorphine/Naloxone [Suboxone 8Mg/2Mg Sl Film -] 1 each SL BID 09/14/19 Gabapentin [Neurontin] 600 mg PO TID 09/14/19 Olanzapine 10 mg PO HS 09/14/19 Venlafaxine HCl ER [Effexor Xr -] 150 mg PO DAILY 09/14/19 - Discharge Instructions Diet, activity, other medical instructions: Diet: Activity: Other medical instructions:
--- NOTE | 2019-09-23 09:30 | DS ---
[facility] Rehab Discharge Summary - [facility] Rehab Discharge Summary Admission Date: 09/19/19 Discharge Date: 09/23/19 - History Present History: Alcohol dependence, Cocaine dependence Pertinent Past History: 39 year old male with history of opioid dependence. Also has history of alcohol dependence with withdrawal. Alcohol: 2 pints vodka + 12 beers daily, started drinking at age 12 and last drank on 09/13/19. 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 Heroin: 1-2 bags usually but now up to 5 bags daily, started at age 25, last used 09/13/19 Cocaine: just started 1.5 weeks daily $40 daily, started 15 week ago, last used used 09/13/19 Nicotine: 1/2 pack daily, started smoking at the age of 10 PMH: Headache, Migrainous Psurg: None Psych: Bipolar, PTSD ( effexor, zyprexa las taken 2 days ago) He is homeless living on the streets. 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 II-XII NML intact, - Treatment Discharge Condition: Outpatient referral accepted (Patient will go to [facility] for [facility].) - Medication Discharge Medications: Ambulatory Orders Buprenorphine/Naloxone [Suboxone 8Mg/2Mg Sl Film -] 1 each SL BID 09/14/19 Gabapentin [Neurontin] 600 mg PO TID 09/14/19 Olanzapine 10 mg PO HS 09/14/19 Venlafaxine HCl ER [Effexor Xr -] 150 mg PO DAILY 09/14/19 - Medication-Assisted Treatment (MAT) Medication-Assisted Treatment (MAT): No - Discharge Instructions Diet, activity, other medical instructions: Diet:as tolerated Activity: as tolerated Other medical instructions: Please follow up with discharge referral. - Diagnosis (1) Alcohol dependence with withdrawal Current Visit: No Status: Chronic (2) Opioid dependence with withdrawal Current Visit: No Status: Chronic (3) Cocaine dependence Current Visit: No Status: Chronic - Follow-up Referral Minutes to complete discharge: 15 - AMA Did Patient Leave Against Medical Advice: No Additional Comments: Patient was started on Suboxone yesterday and was referred to [facility] for follow up MAT with suboxone. Patient decided to go to [facility] instead, therefore, he was not given a follow up prescription for suboxone.
== END 2019-09-23 08:56 | disposition home or self-care (01) | DRG 772 ==
LOC: YASAS 19:20 → Y3W 19:21
PROVIDERS: ADMIT Allergy & Immunology; ATTEND Allergy & Immunology
PROC: HZ42ZZZ Group Counseling for Substance Abuse Treatment, Cognitive-Behavioral (ICD-10-PCS; principal; 2019-09-19)
DX: F10.20 Alcohol dependence, uncomplicated (principal); F11.20 Opioid dependence, uncomplicated; F14.20 Cocaine dependence, uncomplicated; F17.210 Nicotine dependence, cigarettes, uncomplicated; F31.9 Bipolar disorder, unspecified; F43.10 Post-traumatic stress disorder, unspecified; G43.909 Migraine, unspecified, not intractable, without status migrainosus; Z62.810 Personal history of physical and sexual abuse in childhood; Z56.0 Unemployment, unspecified; Z59.0 Homelessness

== ENCOUNTER 2019-12-24 10:32 | Inpatient (IN) | payer OTHER ==
[2019-12-24 11:30] VITALS: BMI 31.0
[2019-12-24] MEDS ORDERED: MAGNESIUM CITRATE 300 ML BOTTLE PO PRN (15:40)
[2019-12-24] MEDS ORDERED: LOPERAMIDE HCL 2 MG CAPSULE PO PRN (15:40)
[2019-12-24] MEDS ORDERED: guaiFENesin 200 MG/10 ML 10 ML UNIT-DOSE CUPS PO PRN (15:40)
[2019-12-24] MEDS ORDERED: MAG HYDROX/AL HYDROX/SIMETH 30 ML UNIT-DOSE CUP PO PRN (15:40)
[2019-12-24] MEDS ORDERED: P-EPHED 60MG/TRIPROLIDI 2.5MG TABLET PO PRN (15:40)
[2019-12-24] MEDS ORDERED: MAGNESIUM HYDROX 2400MG/30ML ORAL SUSPENSION 30 ML CUP PO PRN (15:40)
[2019-12-24] MEDS ORDERED: NICOTINE POLACRILEX 2 MG GUM BC PRN (15:40)
[2019-12-24] MEDS: hydrOXYzine PAMOATE 25 MG CAPSULE (FP) PO SCH ×2 (17:46→22:21)
[2019-12-24] MEDS: MELATONIN 5 MG TABLETS PO SCH (22:21)
[2019-12-24] MEDS: THIAMINE HCL 100 MG TABLET (FP) PO SCH (22:21)
[2019-12-24] MEDS: GABAPENTIN 300 MG CAPSULE PO SCH (22:21)
[2019-12-24] MEDS: IBUPROFEN 400 MG TABLET (FP) PO PRN (22:21)
[2019-12-25] MEDS: IBUPROFEN 400 MG TABLET (FP) PO PRN ×2 (06:52→21:13)
[2019-12-25] MEDS: hydrOXYzine PAMOATE 25 MG CAPSULE (FP) PO SCH ×5 (06:53→21:12)
[2019-12-25] MEDS: GABAPENTIN 300 MG CAPSULE PO SCH ×3 (06:53→21:11)
[2019-12-25 10:18] LABS: HEMOGLOBIN 13.3 GM/dL (11.7-16.9); MCH 29.9 pg (25.7-33.7); MCHC 33.3 g/dl (32.0-35.9); MEAN CELL VOLUME 89.7 fl (80-96); MEAN PLT VOLUME 8.5 fl (7.5-11.1); PLATELET COUNT 341 K/MM3 (134-434); POTASSIUM 3.9 mmol/L (3.5-5.1); RBC 4.46 M/mm3 (4.00-5.60); RDW 14.1 % (11.9-15.9); WHITE BLOOD COUNT 11.7 K/mm3 (4.0-10.0)
[2019-12-25 10:20] LABS: ALBUMIN 3.7 g/dl (3.4-5.0); BLOOD UREA NITROGEN 10.2 mg/dL (7-18); CALCIUM 9.4 mg/dL (8.5-10.1)
[2019-12-25 10:24] LABS: CREATININE 0.8 mg/dL (0.55-1.3)
[2019-12-25 10:25] LABS: BILIRUBIN,TOTAL 0.5 mg/dL (0.2-1); TOT PROT 7.6 g/dl (6.4-8.2)
[2019-12-25] MEDS: NICOTINE 7 MG/24 HOURS TOPICAL PATCH TD SCH (10:38)
[2019-12-25] MEDS: PRENATAL VITAMINS W/ FOLIC ACID TABLET (FP) PO SCH (10:39)
[2019-12-25 11:22] LABS: SICKLE CELL SCREEN NEGATIVE (NEGATIVE)
[2019-12-25] MEDS: MELATONIN 5 MG TABLETS PO SCH (21:11)
[2019-12-25] MEDS: THIAMINE HCL 100 MG TABLET (FP) PO SCH (21:12)
[2019-12-25] MEDS: OLANZapine 10 MG TABLET PO SCH (21:12)
[2019-12-26] MEDS: IBUPROFEN 400 MG TABLET (FP) PO PRN ×3 (06:39→21:41)
[2019-12-26] MEDS: GABAPENTIN 300 MG CAPSULE PO SCH ×3 (06:39→21:42)
[2019-12-26] MEDS: hydrOXYzine PAMOATE 25 MG CAPSULE (FP) PO SCH ×5 (06:39→21:42)
[2019-12-26] MEDS: NICOTINE 7 MG/24 HOURS TOPICAL PATCH TD SCH (11:25)
[2019-12-26] MEDS: VENLAFAXINE HCL 75 MG E.R. CAPSULES PO SCH (11:25)
[2019-12-26] MEDS: PRENATAL VITAMINS W/ FOLIC ACID TABLET (FP) PO SCH (11:25)
[2019-12-26] MEDS: MELATONIN 5 MG TABLETS PO SCH (21:41)
[2019-12-26] MEDS: OLANZapine 10 MG TABLET PO SCH (21:42)
[2019-12-26] MEDS: THIAMINE HCL 100 MG TABLET (FP) PO SCH (21:42)
[2019-12-27] MEDS: GABAPENTIN 300 MG CAPSULE PO SCH ×3 (07:23→21:53)
[2019-12-27] MEDS: hydrOXYzine PAMOATE 25 MG CAPSULE (FP) PO SCH ×5 (07:23→21:54)
[2019-12-27] MEDS: PRENATAL VITAMINS W/ FOLIC ACID TABLET (FP) PO SCH (11:23)
[2019-12-27] MEDS: NICOTINE 7 MG/24 HOURS TOPICAL PATCH TD SCH (11:23)
[2019-12-27] MEDS: VENLAFAXINE HCL 75 MG E.R. CAPSULES PO SCH (11:23)
[2019-12-27] MEDS: MELATONIN 5 MG TABLETS PO SCH (21:53)
[2019-12-27] MEDS: OLANZapine 10 MG TABLET PO SCH (21:54)
[2019-12-27] MEDS: IBUPROFEN 400 MG TABLET (FP) PO PRN (21:54)
[2019-12-27] MEDS: THIAMINE HCL 100 MG TABLET (FP) PO SCH (21:54)
[2019-12-28] MEDS: GABAPENTIN 300 MG CAPSULE PO SCH ×3 (07:35→21:48)
[2019-12-28] MEDS: hydrOXYzine PAMOATE 25 MG CAPSULE (FP) PO SCH ×5 (07:35→21:48)
[2019-12-28] MEDS: VENLAFAXINE HCL 75 MG E.R. CAPSULES PO SCH (10:40)
[2019-12-28] MEDS: IBUPROFEN 400 MG TABLET (FP) PO PRN (10:40)
[2019-12-28] MEDS: PRENATAL VITAMINS W/ FOLIC ACID TABLET (FP) PO SCH (10:40)
[2019-12-28] MEDS: NICOTINE 7 MG/24 HOURS TOPICAL PATCH TD SCH (10:40)
[2019-12-28] MEDS: MELATONIN 5 MG TABLETS PO SCH (21:48)
[2019-12-28] MEDS: OLANZapine 10 MG TABLET PO SCH (21:48)
[2019-12-28] MEDS: ACETAMINOPHEN 325 MG TABLET (FP) PO PRN (21:48)
[2019-12-28] MEDS: THIAMINE HCL 100 MG TABLET (FP) PO SCH (22:49)
[2019-12-29] MEDS: GABAPENTIN 300 MG CAPSULE PO SCH ×3 (07:21→21:05)
[2019-12-29] MEDS: hydrOXYzine PAMOATE 25 MG CAPSULE (FP) PO SCH ×4 (07:21→22:51)
[2019-12-29] MEDS: IBUPROFEN 400 MG TABLET (FP) PO PRN ×2 (07:21→21:06)
[2019-12-29] MEDS: VENLAFAXINE HCL 75 MG E.R. CAPSULES PO SCH (11:39)
[2019-12-29] MEDS: PRENATAL VITAMINS W/ FOLIC ACID TABLET (FP) PO SCH (11:39)
[2019-12-29] MEDS: NICOTINE 7 MG/24 HOURS TOPICAL PATCH TD SCH (11:39)
[2019-12-29] MEDS: ACETAMINOPHEN 325 MG TABLET (FP) PO PRN (13:55)
[2019-12-29] MEDS: OLANZapine 10 MG TABLET PO SCH (21:05)
[2019-12-29] MEDS: THIAMINE HCL 100 MG TABLET (FP) PO SCH (21:08)
[2019-12-29] MEDS: MELATONIN 5 MG TABLETS PO SCH (22:51)
[2019-12-30] MEDS: GABAPENTIN 300 MG CAPSULE PO SCH ×3 (07:05→21:57)
[2019-12-30] MEDS: IBUPROFEN 400 MG TABLET (FP) PO PRN ×2 (07:05→14:33)
[2019-12-30] MEDS: hydrOXYzine PAMOATE 25 MG CAPSULE (FP) PO SCH ×6 (07:05→21:58)
[2019-12-30] MEDS: PRENATAL VITAMINS W/ FOLIC ACID TABLET (FP) PO SCH (10:25)
[2019-12-30] MEDS: VENLAFAXINE HCL 75 MG E.R. CAPSULES PO SCH (10:25)
[2019-12-30] MEDS: NICOTINE 7 MG/24 HOURS TOPICAL PATCH TD SCH (10:26)
[2019-12-30] MEDS: ACETAMINOPHEN 325 MG TABLET (FP) PO PRN ×3 (10:27→21:57)
[2019-12-30 16:36] LABS: PH,URINE 7.5 (5.0-8.0); URINE APPEARANCE CLEAR; URINE BILIRUBIN NEGATIVE (NEGATIVE); URINE COLOR DK YELLOW; URINE GLUCOSE (UA) NEGATIVE (NEGATIVE); URINE KETONE NEGATIVE (NEGATIVE); URINE LEUK ESTERASE NEGATIVE (NEGATIVE); URINE NITRITE NEGATIVE (NEGATIVE); URINE PROTEIN NEGATIVE (NEGATIVE)
[2019-12-30] MEDS: MELATONIN 5 MG TABLETS PO SCH (21:58)
[2019-12-30] MEDS: OLANZapine 10 MG TABLET PO SCH (21:58)
[2019-12-30] MEDS: THIAMINE HCL 100 MG TABLET (FP) PO SCH (21:58)
[2019-12-31] MEDS: IBUPROFEN 400 MG TABLET (FP) PO PRN ×2 (07:01→17:31)
[2019-12-31] MEDS: hydrOXYzine PAMOATE 25 MG CAPSULE (FP) PO SCH ×5 (07:01→21:47)
[2019-12-31] MEDS: GABAPENTIN 300 MG CAPSULE PO SCH ×3 (07:01→21:47)
[2019-12-31] MEDS: PRENATAL VITAMINS W/ FOLIC ACID TABLET (FP) PO SCH (10:51)
[2019-12-31] MEDS: NICOTINE 7 MG/24 HOURS TOPICAL PATCH TD SCH (10:51)
[2019-12-31] MEDS: VENLAFAXINE HCL 75 MG E.R. CAPSULES PO SCH (10:51)
[2019-12-31] MEDS: ACETAMINOPHEN 325 MG TABLET (FP) PO PRN ×2 (13:10→21:47)
[2019-12-31] MEDS: THIAMINE HCL 100 MG TABLET (FP) PO SCH (21:47)
[2019-12-31] MEDS: OLANZapine 10 MG TABLET PO SCH (21:47)
[2019-12-31] MEDS: MELATONIN 5 MG TABLETS PO SCH (21:47)
[2020-01-01] MEDS: GABAPENTIN 300 MG CAPSULE PO SCH ×3 (06:57→21:50)
[2020-01-01] MEDS: IBUPROFEN 400 MG TABLET (FP) PO PRN ×3 (06:58→21:51)
[2020-01-01] MEDS: hydrOXYzine PAMOATE 25 MG CAPSULE (FP) PO SCH ×5 (06:58→21:51)
[2020-01-01] MEDS: PRENATAL VITAMINS W/ FOLIC ACID TABLET (FP) PO SCH (10:22)
[2020-01-01] MEDS: NICOTINE 7 MG/24 HOURS TOPICAL PATCH TD SCH (10:22)
[2020-01-01] MEDS: VENLAFAXINE HCL 75 MG E.R. CAPSULES PO SCH (10:22)
[2020-01-01] MEDS: METHOCARBAMOL 500 MG TABLET PO PRN ×2 (10:24→18:24)
[2020-01-01] MEDS: ACETAMINOPHEN 325 MG TABLET (FP) PO PRN ×2 (10:24→17:53)
[2020-01-01] MEDS: MELATONIN 5 MG TABLETS PO SCH (21:50)
[2020-01-01] MEDS: OLANZapine 10 MG TABLET PO SCH (21:51)
[2020-01-01] MEDS: THIAMINE HCL 100 MG TABLET (FP) PO SCH (21:51)
[2020-01-02] MEDS: METHOCARBAMOL 500 MG TABLET PO PRN ×2 (06:36→15:31)
[2020-01-02] MEDS: GABAPENTIN 300 MG CAPSULE PO SCH ×3 (06:36→21:14)
[2020-01-02] MEDS: hydrOXYzine PAMOATE 25 MG CAPSULE (FP) PO SCH ×5 (06:36→21:14)
[2020-01-02] MEDS: IBUPROFEN 400 MG TABLET (FP) PO PRN ×2 (06:37→15:31)
[2020-01-02] MEDS: NICOTINE 7 MG/24 HOURS TOPICAL PATCH TD SCH (10:31)
[2020-01-02] MEDS: PRENATAL VITAMINS W/ FOLIC ACID TABLET (FP) PO SCH (10:31)
[2020-01-02] MEDS: VENLAFAXINE HCL 75 MG E.R. CAPSULES PO SCH (10:31)
[2020-01-02] MEDS: ACETAMINOPHEN 325 MG TABLET (FP) PO PRN (19:42)
[2020-01-02] MEDS: THIAMINE HCL 100 MG TABLET (FP) PO SCH (21:14)
[2020-01-02] MEDS: OLANZapine 10 MG TABLET PO SCH (21:14)
[2020-01-02] MEDS: MELATONIN 5 MG TABLETS PO SCH (21:15)
[2020-01-03] MEDS: GABAPENTIN 300 MG CAPSULE PO SCH ×3 (07:46→21:56)
[2020-01-03] MEDS: hydrOXYzine PAMOATE 25 MG CAPSULE (FP) PO SCH ×5 (07:46→21:57)
[2020-01-03] MEDS: IBUPROFEN 400 MG TABLET (FP) PO PRN ×2 (08:15→14:41)
[2020-01-03] MEDS: METHOCARBAMOL 500 MG TABLET PO PRN ×2 (08:16→16:22)
[2020-01-03] MEDS: NICOTINE 7 MG/24 HOURS TOPICAL PATCH TD SCH (10:30)
[2020-01-03] MEDS: PRENATAL VITAMINS W/ FOLIC ACID TABLET (FP) PO SCH (10:30)
[2020-01-03] MEDS: VENLAFAXINE HCL 75 MG E.R. CAPSULES PO SCH (10:30)
[2020-01-03] MEDS: MELATONIN 5 MG TABLETS PO SCH (21:57)
[2020-01-03] MEDS: OLANZapine 10 MG TABLET PO SCH (21:57)
[2020-01-03] MEDS: THIAMINE HCL 100 MG TABLET (FP) PO SCH (21:57)
[2020-01-04] MEDS: hydrOXYzine PAMOATE 25 MG CAPSULE (FP) PO SCH ×5 (07:29→21:11)
[2020-01-04] MEDS: METHOCARBAMOL 500 MG TABLET PO PRN ×3 (07:29→21:11)
[2020-01-04] MEDS: IBUPROFEN 400 MG TABLET (FP) PO PRN (07:29)
[2020-01-04] MEDS: GABAPENTIN 300 MG CAPSULE PO SCH ×3 (07:29→21:11)
[2020-01-04] MEDS: VENLAFAXINE HCL 75 MG E.R. CAPSULES PO SCH (10:34)
[2020-01-04] MEDS: PRENATAL VITAMINS W/ FOLIC ACID TABLET (FP) PO SCH (10:34)
[2020-01-04] MEDS: NICOTINE 7 MG/24 HOURS TOPICAL PATCH TD SCH (10:35)
[2020-01-04] MEDS: IBUPROFEN 600 MG TABLET (FP) PO PRN (15:18)
[2020-01-04] MEDS: MELATONIN 5 MG TABLETS PO SCH (21:11)
[2020-01-04] MEDS: THIAMINE HCL 100 MG TABLET (FP) PO SCH (21:11)
[2020-01-04] MEDS: ACETAMINOPHEN 325 MG TABLET (FP) PO PRN (21:11)
[2020-01-04] MEDS: OLANZapine 10 MG TABLET PO SCH (21:11)
[2020-01-05] MEDS: hydrOXYzine PAMOATE 25 MG CAPSULE (FP) PO SCH ×5 (07:01→22:42)
[2020-01-05] MEDS: GABAPENTIN 300 MG CAPSULE PO SCH ×3 (07:01→22:40)
[2020-01-05] MEDS: IBUPROFEN 600 MG TABLET (FP) PO PRN ×3 (08:00→22:40)
[2020-01-05] MEDS: METHOCARBAMOL 500 MG TABLET PO PRN ×3 (08:03→22:40)
[2020-01-05] MEDS: VENLAFAXINE HCL 75 MG E.R. CAPSULES PO SCH (10:07)
[2020-01-05] MEDS: NICOTINE 7 MG/24 HOURS TOPICAL PATCH TD SCH (10:07)
[2020-01-05] MEDS: PRENATAL VITAMINS W/ FOLIC ACID TABLET (FP) PO SCH (10:07)
[2020-01-05] MEDS: OLANZapine 10 MG TABLET PO SCH (22:40)
[2020-01-05] MEDS: MELATONIN 5 MG TABLETS PO SCH (22:41)
[2020-01-05] MEDS: THIAMINE HCL 100 MG TABLET (FP) PO SCH (22:43)
[2020-01-06] MEDS: GABAPENTIN 300 MG CAPSULE PO SCH ×3 (06:36→21:04)
[2020-01-06] MEDS: METHOCARBAMOL 500 MG TABLET PO PRN ×3 (06:36→21:05)
[2020-01-06] MEDS: IBUPROFEN 600 MG TABLET (FP) PO PRN ×3 (06:36→21:05)
[2020-01-06] MEDS: hydrOXYzine PAMOATE 25 MG CAPSULE (FP) PO SCH ×5 (06:36→21:06)
[2020-01-06] MEDS: PRENATAL VITAMINS W/ FOLIC ACID TABLET (FP) PO SCH (10:07)
[2020-01-06] MEDS: VENLAFAXINE HCL 75 MG E.R. CAPSULES PO SCH (10:07)
[2020-01-06] MEDS: NICOTINE 7 MG/24 HOURS TOPICAL PATCH TD SCH (10:08)
[2020-01-06] MEDS: MELATONIN 5 MG TABLETS PO SCH (21:04)
[2020-01-06] MEDS: THIAMINE HCL 100 MG TABLET (FP) PO SCH (21:05)
[2020-01-06] MEDS: OLANZapine 10 MG TABLET PO SCH (21:06)
[2020-01-07] MEDS: GABAPENTIN 300 MG CAPSULE PO SCH ×3 (06:57→22:02)
[2020-01-07] MEDS: hydrOXYzine PAMOATE 25 MG CAPSULE (FP) PO SCH ×5 (06:57→22:02)
[2020-01-07] MEDS: VENLAFAXINE HCL 75 MG E.R. CAPSULES PO SCH (10:10)
[2020-01-07] MEDS: METHOCARBAMOL 500 MG TABLET PO PRN ×2 (10:11→17:47)
[2020-01-07] MEDS: PRENATAL VITAMINS W/ FOLIC ACID TABLET (FP) PO SCH (10:11)
[2020-01-07] MEDS: IBUPROFEN 600 MG TABLET (FP) PO PRN ×2 (10:11→16:50)
[2020-01-07] MEDS: NICOTINE 7 MG/24 HOURS TOPICAL PATCH TD SCH (10:12)
[2020-01-07] MEDS: MELATONIN 5 MG TABLETS PO SCH (22:01)
[2020-01-07] MEDS: THIAMINE HCL 100 MG TABLET (FP) PO SCH (22:01)
[2020-01-07] MEDS: OLANZapine 10 MG TABLET PO SCH (22:02)
[2020-01-07] MEDS: ACETAMINOPHEN 325 MG TABLET (FP) PO PRN (22:02)
[2020-01-08] MEDS: hydrOXYzine PAMOATE 25 MG CAPSULE (FP) PO SCH ×5 (07:12→22:14)
[2020-01-08] MEDS: GABAPENTIN 300 MG CAPSULE PO SCH ×3 (07:12→22:13)
[2020-01-08] MEDS: METHOCARBAMOL 500 MG TABLET PO PRN ×2 (10:11→22:15)
[2020-01-08] MEDS: IBUPROFEN 600 MG TABLET (FP) PO PRN ×2 (10:11→22:15)
[2020-01-08] MEDS: PRENATAL VITAMINS W/ FOLIC ACID TABLET (FP) PO SCH (10:11)
[2020-01-08] MEDS: VENLAFAXINE HCL 75 MG E.R. CAPSULES PO SCH (10:11)
[2020-01-08] MEDS: NICOTINE 7 MG/24 HOURS TOPICAL PATCH TD SCH (10:12)
[2020-01-08] MEDS: THIAMINE HCL 100 MG TABLET (FP) PO SCH (22:13)
[2020-01-08] MEDS: MELATONIN 5 MG TABLETS PO SCH (22:14)
[2020-01-08] MEDS: OLANZapine 10 MG TABLET PO SCH (22:14)
[2020-01-09] MEDS: hydrOXYzine PAMOATE 25 MG CAPSULE (FP) PO SCH ×5 (08:28→21:04)
[2020-01-09] MEDS: GABAPENTIN 300 MG CAPSULE PO SCH ×3 (08:28→21:04)
[2020-01-09] MEDS: PRENATAL VITAMINS W/ FOLIC ACID TABLET (FP) PO SCH (09:34)
[2020-01-09] MEDS: VENLAFAXINE HCL 75 MG E.R. CAPSULES PO SCH (09:35)
[2020-01-09] MEDS: NICOTINE 7 MG/24 HOURS TOPICAL PATCH TD SCH (09:35)
[2020-01-09] MEDS: IBUPROFEN 600 MG TABLET (FP) PO PRN ×2 (09:36→21:04)
[2020-01-09] MEDS: METHOCARBAMOL 500 MG TABLET PO PRN ×2 (09:36→21:04)
[2020-01-09] MEDS: THIAMINE HCL 100 MG TABLET (FP) PO SCH (21:04)
[2020-01-09] MEDS: MELATONIN 5 MG TABLETS PO SCH (21:04)
[2020-01-09] MEDS: OLANZapine 10 MG TABLET PO SCH (21:04)
[2020-01-10] MEDS: GABAPENTIN 300 MG CAPSULE PO SCH ×3 (07:35→21:36)
[2020-01-10] MEDS: hydrOXYzine PAMOATE 25 MG CAPSULE (FP) PO SCH ×5 (07:35→21:37)
[2020-01-10] MEDS: NICOTINE 7 MG/24 HOURS TOPICAL PATCH TD SCH (10:09)
[2020-01-10] MEDS: PRENATAL VITAMINS W/ FOLIC ACID TABLET (FP) PO SCH (10:09)
[2020-01-10] MEDS: VENLAFAXINE HCL 75 MG E.R. CAPSULES PO SCH (10:10)
[2020-01-10] MEDS: METHOCARBAMOL 500 MG TABLET PO PRN ×2 (10:12→21:36)
[2020-01-10] MEDS: IBUPROFEN 600 MG TABLET (FP) PO PRN ×2 (10:12→21:36)
[2020-01-10] MEDS: THIAMINE HCL 100 MG TABLET (FP) PO SCH (21:36)
[2020-01-10] MEDS: OLANZapine 10 MG TABLET PO SCH (21:36)
[2020-01-10] MEDS: MELATONIN 5 MG TABLETS PO SCH (21:37)
[2020-01-11] MEDS: GABAPENTIN 300 MG CAPSULE PO SCH ×3 (07:09→21:01)
[2020-01-11] MEDS: hydrOXYzine PAMOATE 25 MG CAPSULE (FP) PO SCH ×5 (07:10→21:01)
[2020-01-11] MEDS: VENLAFAXINE HCL 75 MG E.R. CAPSULES PO SCH (09:44)
[2020-01-11] MEDS: PRENATAL VITAMINS W/ FOLIC ACID TABLET (FP) PO SCH (09:44)
[2020-01-11] MEDS: NICOTINE 7 MG/24 HOURS TOPICAL PATCH TD SCH (09:45)
[2020-01-11] MEDS: IBUPROFEN 600 MG TABLET (FP) PO PRN ×2 (09:46→19:47)
[2020-01-11] MEDS: METHOCARBAMOL 500 MG TABLET PO PRN ×2 (15:15→21:00)
[2020-01-11] MEDS: MELATONIN 5 MG TABLETS PO SCH (21:00)
[2020-01-11] MEDS: THIAMINE HCL 100 MG TABLET (FP) PO SCH (21:00)
[2020-01-11] MEDS: OLANZapine 10 MG TABLET PO SCH (21:01)
[2020-01-11] MEDS: MENTHOL/PHENOL 1 EACH UD MM PRN (22:45)
[2020-01-12] MEDS: GABAPENTIN 300 MG CAPSULE PO SCH ×3 (07:19→21:56)
[2020-01-12] MEDS: hydrOXYzine PAMOATE 25 MG CAPSULE (FP) PO SCH ×5 (07:19→21:56)
[2020-01-12] MEDS: PRENATAL VITAMINS W/ FOLIC ACID TABLET (FP) PO SCH (10:02)
[2020-01-12] MEDS: VENLAFAXINE HCL 75 MG E.R. CAPSULES PO SCH (10:02)
[2020-01-12] MEDS: IBUPROFEN 600 MG TABLET (FP) PO PRN ×2 (10:02→21:56)
[2020-01-12] MEDS: NICOTINE 7 MG/24 HOURS TOPICAL PATCH TD SCH (10:02)
[2020-01-12] MEDS: METHOCARBAMOL 500 MG TABLET PO PRN ×2 (10:02→21:56)
[2020-01-12] MEDS: THIAMINE HCL 100 MG TABLET (FP) PO SCH (21:56)
[2020-01-12] MEDS: OLANZapine 10 MG TABLET PO SCH (21:56)
[2020-01-12] MEDS: MELATONIN 5 MG TABLETS PO SCH (21:57)
[2020-01-13] MEDS: hydrOXYzine PAMOATE 25 MG CAPSULE (FP) PO SCH ×5 (06:45→21:03)
[2020-01-13] MEDS: GABAPENTIN 300 MG CAPSULE PO SCH ×3 (06:45→21:03)
[2020-01-13] MEDS: VENLAFAXINE HCL 75 MG E.R. CAPSULES PO SCH (10:03)
[2020-01-13] MEDS: PRENATAL VITAMINS W/ FOLIC ACID TABLET (FP) PO SCH (10:03)
[2020-01-13] MEDS: NICOTINE 7 MG/24 HOURS TOPICAL PATCH TD SCH (10:03)
[2020-01-13] MEDS: MENTHOL/PHENOL 1 EACH UD MM PRN (10:05)
[2020-01-13] MEDS: IBUPROFEN 600 MG TABLET (FP) PO PRN ×2 (10:05→17:40)
[2020-01-13] MEDS: METHOCARBAMOL 500 MG TABLET PO PRN (17:40)
[2020-01-13] MEDS: MELATONIN 5 MG TABLETS PO SCH (21:03)
[2020-01-13] MEDS: OLANZapine 10 MG TABLET PO SCH (21:03)
[2020-01-13] MEDS: THIAMINE HCL 100 MG TABLET (FP) PO SCH (21:03)
[2020-01-14] MEDS: hydrOXYzine PAMOATE 25 MG CAPSULE (FP) PO SCH ×5 (07:13→21:57)
[2020-01-14] MEDS: GABAPENTIN 300 MG CAPSULE PO SCH ×3 (07:13→21:57)
[2020-01-14] MEDS: IBUPROFEN 600 MG TABLET (FP) PO PRN ×2 (10:16→21:58)
[2020-01-14] MEDS: VENLAFAXINE HCL 75 MG E.R. CAPSULES PO SCH (10:16)
[2020-01-14] MEDS: NICOTINE 7 MG/24 HOURS TOPICAL PATCH TD SCH (10:17)
[2020-01-14] MEDS: PRENATAL VITAMINS W/ FOLIC ACID TABLET (FP) PO SCH (10:17)
[2020-01-14 11:13] VITALS: BP 118/78; PULSE 94
[2020-01-14] MEDS: METHOCARBAMOL 500 MG TABLET PO PRN ×2 (16:51→21:57)
[2020-01-14] MEDS: THIAMINE HCL 100 MG TABLET (FP) PO SCH (21:57)
[2020-01-14] MEDS: MELATONIN 5 MG TABLETS PO SCH (21:57)
[2020-01-14] MEDS: OLANZapine 10 MG TABLET PO SCH (21:58)
[2020-01-14 22:44] VITALS: TEMP 97.7
[2020-01-15] MEDS: GABAPENTIN 300 MG CAPSULE PO SCH (07:11)
[2020-01-15] MEDS: hydrOXYzine PAMOATE 25 MG CAPSULE (FP) PO SCH ×2 (07:11→10:06)
[2020-01-15] MEDS: IBUPROFEN 600 MG TABLET (FP) PO PRN (10:06)
[2020-01-15] MEDS: PRENATAL VITAMINS W/ FOLIC ACID TABLET (FP) PO SCH (10:06)
[2020-01-15] MEDS: VENLAFAXINE HCL 75 MG E.R. CAPSULES PO SCH (10:06)
[2020-01-15] MEDS: NICOTINE 7 MG/24 HOURS TOPICAL PATCH TD SCH (10:07)
== END 2020-01-15 10:30 | disposition other institution (70) | DRG 772 ==
LOC: YASAS 10:32 → Y5N 15:48
PROVIDERS: ADMIT Allergy & Immunology; ATTEND Allergy & Immunology
PROC: HZ42ZZZ Group Counseling for Substance Abuse Treatment, Cognitive-Behavioral (ICD-10-PCS; principal; 2019-12-24)
DX: F11.20 Opioid dependence, uncomplicated (principal); F14.20 Cocaine dependence, uncomplicated; F17.210 Nicotine dependence, cigarettes, uncomplicated; F19.282 Other psychoactive substance dependence with psychoactive substance-induced sleep disorder; F19.24 Other psychoactive substance dependence with psychoactive substance-induced mood disorder; F31.9 Bipolar disorder, unspecified; F43.10 Post-traumatic stress disorder, unspecified; G43.909 Migraine, unspecified, not intractable, without status migrainosus; R73.9 Hyperglycemia, unspecified; E66.9 Obesity, unspecified; Z68.31 Body mass index [BMI] 31.0-31.9, adult; R26.89 Other abnormalities of gait and mobility; Z99.89 Dependence on other enabling machines and devices; Z91.14 Patient's other noncompliance with medication regimen; Z59.0 Homelessness
CPT/HCPCS: 36415; 80053; 81003; 82962; 85027; 85660; 86780; C9803; U0003